=== PATIENT | male | born 1950 | race Caucasian/White ===

== ENCOUNTER 2019-12-11 14:52 | Emergency (ER) | payer MEDICARE ==
[~2019-12-11] VITALS: Ht 190.5 cm; Wt 90.3 kg
[2019-12-11 15:38] LABS: BASO % 0 % (0-3); EOS % 0 % (0-3); HEMATOCRIT 48.7 % (39.0-53.0); HEMOGLOBIN 16.5 g/dL (13.0-17.5); LYMPH # 0.4 x10^3/uL (1.0-4.8); LYMPH % 8 % (24-48); MEAN CORPUSCULAR HEMOGLOBIN 30 pg (25-35); MEAN CORPUSCULAR HGB CONC 34 g/dL (31-37); MEAN CORPUSCULAR VOLUME 90 fL (79-100); MONO # 0.3 x10^3/uL (0.0-1.1); MONO % 7 % (0-9); NEUT # 4.2 x10^3uL (1.8-7.7); NEUT % 85 % (31-73); PLATELET COUNT 186 x10^3/uL (140-400); RED BLOOD COUNT 5.42 x10^6/uL (4.30-5.70); RED CELL DISTRIBUTION WIDTH 14.1 % (11.5-14.5)
[2019-12-11 15:52] LABS: CALCIUM 8.2 mg/dL (8.5-10.1); CREATININE 1.1 mg/dL (0.7-1.3); GFR 66.8; POTASSIUM 3.4 mmol/L (3.5-5.1)
[2019-12-11 15:58] LABS: ALBUMIN/GLOBULIN RATIO 0.7 (1.0-1.7); TOTAL BILIRUBIN 1.5 mg/dL (0.2-1.0); TOTAL PROTEIN 7.1 g/dL (6.4-8.2)
--- NOTE | 2019-12-11 16:01 | RAD ---
Examination: 2 views of the left humerus, left shoulder, frontal view of the chest History history of fall, Findings/ impression: There is posterior displaced comminuted fracture of the mid diaphysis of the left humerus. Mild joint space loss identified in the glenohumeral joint likely degenerative changes. Mild cardiomegaly. Mild prominent bilateral interstitial lung markings likely chronic interstitial changes of interstitial infiltrates. Electronically signed by: Sunday Pacheco MD (12/11/2019 3:58 PM) [id number]
--- NOTE | 2019-12-11 16:19 | EKG ---
[facility] ED [facility] [address] [place] [id number] Test Date: 2019-12-11 Test Time: 15:11:57 Pat Name: IWONA ARMSTRONG Department: Room: Gender: M Associate Professor Of Medicine: : 1950 Requested By: DAYAMI JAQUEZ Order Number: [id number] Reading MD: Shaw Brown Measurements Intervals [place] Rate: 110 P: 36 PA: 162 QRS: -18 QRSD: 84 T: 39 QT: 330 QTc: 452 Interpretive Statements SINUS TACHYCARDIA VENTRICULAR PREMATURE COMPLEX(ES) LEFTWARD AXIS LOW LIMB LEAD VOLTAGE ABNORMAL ECG RI6.02 No previous ECG available for comparison Electronically Signed On 12-14-2019 10:56:18 [employer] by Shaw Brown
[2019-12-11] MEDS ORDERED: DEXAMETHASONE SOD PHOS 10 MG/ML VIAL. IV ONE (16:30)
[2019-12-11] MEDS ORDERED: AZITHROMYCIN 500 MG in IV NORMAL SALINE 250ML 250 ML IV ONE (16:30)
[2019-12-11] MEDS ORDERED: IV NORMAL SALINE 250ML 250 ML ONE (16:51)
[2019-12-11] MEDS ORDERED: IV NORMAL SALINE 100ML 100 ML ONE (16:51)
[2019-12-11] MEDS ORDERED: AZITHROMYCIN 500 MG VIAL. IV ONE (16:51)
[2019-12-11] MEDS ORDERED: IV NORMAL SALINE 1,000ML 1,000 ML IV ONE (19:00)
--- NOTE | 2019-12-11 19:06 | PHYS DOC ---
Past History Past Medical History: Diabetes, High Cholesterol, Hypertension Past Surgical History: No Surgical History Alcohol Use: None Drug Use: None Adult General Chief Complaint Chief Complaint: MULTIPLE COMPLAINTS HPI HPI Patient is a 69-year-old male who presents status post fall via EMS. Onset was just prior to arrival. Patient reports suffering and ambulatory fall down x5 steps landing on his left upper extremity. Patient did not hit his head, did not lose consciousness, but noticed immediate pain and bony abnormality to his left upper extremity. He was able to ambulate and call EMS who came on the scene and subsequently transferred patient to our facility for evaluation. On arrival to the scene, patient was found to be hypoxic saturating in the 70s on arrival and tachycardic in the low 100s. Patient is not on oxygen at home. He was immediately placed on a nonrebreather at 15 L supplemental oxygen and transferred to our facility for evaluation. On arrival, patient reports feeling "like I have the flu" for past 1 week. Admits feeling hot without any recorded fevers, has had chills, rhinorrhea, body aches, mild nausea, and a nonproductive cough. Patient denies any known COVID-19 contact but admits he has been traveling out into the community to get groceries etc. He lives home alone with his dog, no hemoptysis, no estrogen use, no long distance travel, no history of DVT/PE, no recent antibiotic use. He is a type II diabetic, admits being on o ral therapy only, also takes medications for hypertension, a statin, and 81 mg aspirin. Review of Systems Review of Systems Fourteen body systems of review of systems have been reviewed. See HPI for pertinent positives and negative responses, other rivera all other systems are negative, non-pertinent or non-contributory Current Medications Current Medications Current Medications Medications (Trade) Dose Ordered Sig/Naye Start Time Stop Time Status Last Admin Dose Admin Azithromycin (Zithromax) 500 mg STK-MED ONCE 12/11/19 16:51 12/11/19 16:51 DC Azithromycin 500 mg/Sodium Chloride 250 ml @ 250 mls/hr 1X ONCE 12/11/19 16:30 12/11/19 17:29 DC 12/11/19 17:05 250 MLS/HR Ceftriaxone Sodium 2 gm/ Sodium Chloride 100 ml @ 200 mls/hr 1X ONCE 12/11/19 16:30 12/11/19 16:59 DC 12/11/19 17:05 200 MLS/HR Ceftriaxone Sodium (Rocephin) 2 gm STK-MED ONCE 12/11/19 16:51 12/11/19 16:51 DC Dexamethasone Sodium Phosphate (Decadron) 6 mg 1X ONCE 12/11/19 16:30 12/11/19 16:35 DC 12/11/19 17:04 6 MG Sodium Chloride 1,000 ml @ 150 mls/hr 1X ONCE 12/11/19 19:00 12/12/19 01:39 UNV Allergies Allergies Allergies Coded Allergies Type Severity Reaction Last Updated Verified No Known Drug Allergies 12/11/19 No Physical Exam Physical Exam Constitutional: Pt is oriented to person, place, and time. Pt appears well- developed and well-nourished. Sitting upright with nonrebreather in place HENT: Head: Normocephalic and atraumatic. Mouth/Throat: Oropharynx is clear and dry, poor dentition No hematomas or lacerations or abrasions to face or scalp OP clear, no blood, no malocclusion, dentition intact Nares clear, no nasal septal hematoma External ears unremarkable, no chen sign Midface stable Eyes: Conjunctivae and EOM are normal. Pupils are equal, round, and reactive to light. Neck: C-spine midline nontender, no step-offs Cardiovascular: Tachycardic rate, regular rhythm and normal heart sounds. Pulmonary/Chest: Effort increased, breath sounds abnormal with bilateral rhonchi present diffusely. In moderate respiratory distress, accessory muscle usage noted in neck and upper abdomen Abdominal: Soft. Bowel sounds are normal. Pt exhibits no distension. There is no tenderness. Musculoskeletal: Obvious bony abnormality to left upper extremity, palpable and visual defect to left humerus area. Chest wall stable Pelvis stable and non-tender No vertebral TTP and spine without stepoffs Neurological: Pt is alert and oriented to person, place, and time. Moving all extremities willfully, able to wiggle all fingers and toes. Median ulnar and radial nerves intact to left upper extremity. Cap refill less than 3 seconds. Pulses equal and bilateral 2+ in upper extremities Alert and oriented x 3 Sensation grossly intact Skin: Skin is warm and dry. No abrasions, no lacerations Psychiatric: Behavior is appropriate for situation Nursing note and vitals reviewed. Current Patient Data Vital Signs Vital Signs Date Time Temp Pulse Resp B/P (MAP) Pulse Ox O2 Delivery O2 Flow Rate FiO2 12/11/19 14:52 99.9 100 34 135/76 (95) 44 Room Air Lab Results Laboratory Tests Test 12/11/19 15:22 White Blood Count 5.0 x10^3/uL (4.0-11.0) Red Blood Count 5.42 x10^6/uL (4.30-5.70) Hemoglobin 16.5 g/dL (13.0-17.5) Hematocrit 48.7 % (39.0-53.0) Mean Corpuscular Volume 90 fL (79-100) Mean Corpuscular Hemoglobin 30 pg (25-35) Mean Corpuscular Hemoglobin Concent 34 g/dL (31-37) Red Cell Distribution Width 14.1 % (11.5-14.5) Platelet Count 186 x10^3/uL (140-400) Neutrophils (%) (Auto) 85 % (31-73) Lymphocytes (%) (Auto) 8 % (24-48) Monocytes (%) (Auto) 7 % (0-9) Eosinophils (%) (Auto) 0 % (0-3) Basophils (%) (Auto) 0 % (0-3) Neutrophils # (Auto) 4.2 x10^3uL (1.8-7.7) Lymphocytes # (Auto) 0.4 x10^3/uL (1.0-4.8) Monocytes # (Auto) 0.3 x10^3/uL (0.0-1.1) Eosinophils # (Auto) 0.0 x10^3/uL (0.0-0.7) Basophils # (Auto) 0.0 x10^3/uL (0.0-0.2) Sodium Level 128 mmol/L (136-145) Potassium Level 3.4 mmol/L (3.5-5.1) Chloride Level 90 mmol/L (98-107) Carbon Dioxide Level 23 mmol/L (21-32) Anion Gap 15 (6-14) Blood Urea Nitrogen 14 mg/dL (8-26) Creatinine 1.1 mg/dL (0.7-1.3) Estimated GFR (Cockcroft-Gault) 66.8 BUN/Creatinine Ratio 13 (6-20) Glucose Level 260 mg/dL (70-99) Lactic Acid Level 5.4 mmol/L (0.4-2.0) Calcium Level 8.2 mg/dL (8.5-10.1) Total Bilirubin 1.5 mg/dL (0.2-1.0) Aspartate Amino Transf (AST/SGOT) 145 U/L (15-37) Alanine Aminotransferase (ALT/SGPT) 91 U/L (16-63) Alkaline Phosphatase 95 U/L (46-116) Troponin I Quantitative 0.022 ng/mL (0-0.055) Total Protein 7.1 g/dL (6.4-8.2) Albumin 3.0 g/dL (3.4-5.0) Albumin/Globulin Ratio 0.7 (1.0-1.7) EKG EKG EKG ordered and interpreted by myself at 1515 hrs. as sinus tachycardia at 110 bpm, unremarkable intervals, left axis deviation, no ischemic findings, no STEMI Radiology/Procedures Radiology/Procedures PROCEDURE: HUMERUS LEFT Examination: 2 views of the left humerus, left shoulder, frontal view of the chest History history of fall, Findings/ impression: There is posterior displaced comminuted fracture of the mid diaphysis of the left humerus. Mild joint space loss identified in the glenohumeral joint likely degenerative changes. Mild cardiomegaly. Mild prominent bilateral interstitial lung markings likely chronic interstitial changes of interstitial infiltrates. Electronically signed by: Sunday Pacheco MD (12/11/2019 3:58 PM) [id number] Heart Score HEART Score for Chest Pain: HEART Score for Chest Pain Response (Comments) Value History Moderately Suspicious 1 ECG Nonspecific Repolarizatio 1 Age > 65 2 Risk Factors >3 Risk Factors or Hx CAD 2 Troponin < Normal Limit 0 Total 6 Risk Factors: Risk Factors: DM, Current or recent (<one month) smoker, HTN, HLP, family history of CAD, obesity. Risk Scores: Risk Factors: DM, Current or recent (<one month) smoker, HTN, HLP, family history of CAD, obesity. Course & Med Decision Making Course & Med Decision Making Airway patent, patient in moderate respiratory distress, vitals remarkable for hypoxia that is markedly improved with saturations greater than 90% on 15 L nonrebreather and sinus tachycardia Comprehensive history and physical exam obtained, subsequent diagnostic work-up pursued. Pertinent Labs and Imaging studies reviewed and discussed at length with patient. (See chart for details) Discussed most likely diagnoses of left humeral fracture. Orthopedics at [facility] called in case reviewed. Per their recommendation, patient was splinted in a coaptation splint. Remains neurovascularly intact with appropriate motor and sensory function Also discussed respiratory failure that is likely due to pneumonia versus COVID- 19 infection of his lungs. Patient treated as such with 1 g Rocephin, 500 mg azithromycin and given 6 mg dexamethasone. Covid test taken and pending at this time I discussed need for transfer with [facility] hospitalist, Dr. Diana, who is agreeable for transfer for continued medical management under his care Updated patient on proposed plan of care, he was amenable to transfer. At this time, I feel patient is stabilized enough for safe transfer to [facility] for higher acuity of care, orthopedic consultation for his closed left humeral fracture, and continued mgmt of his acute respiratory failure All questions and concerns patient had were addressed prior to ER transport in stable condition via EMS Dragon Disclaimer Dragbrianda Disclaimer This electronic medical record was generated, in whole or in part, using a voice recognition dictation system. Departure Departure: Impression: Primary Impression: Closed left humeral fracture Additional Impressions: Acute respiratory failure with hypoxia Pneumonia Person under investigation for COVID-19 Electrolyte abnormality Type 2 diabetes mellitus Disposition: 02 DC/TRF OTHER SHORT TERM HOS ([facility]) Condition: STABLE Referrals: PCP,UNKNOWN (PCP) Problem Qualifiers DAYAMI JAQUEZ DO Dec 11, 2019 19:06
[2019-12-11 19:32] VITALS: BP 106/46
== END 2019-12-11 20:34 | disposition short-term general hospital (02) ==
LOC: ER 14:52
DX: S42.302A Unspecified fracture of shaft of humerus, left arm, initial encounter for closed fracture (principal); J96.01 Acute respiratory failure with hypoxia; J18.9 Pneumonia, unspecified organism; E87.8 Other disorders of electrolyte and fluid balance, not elsewhere classified; E11.9 Type 2 diabetes mellitus without complications; E78.00 Pure hypercholesterolemia, unspecified; I10 Essential (primary) hypertension; Z20.828 Contact with and (suspected) exposure to other viral communicable diseases; W10.8XXA Fall (on) (from) other stairs and steps, initial encounter; Y93.89 Activity, other specified; Y92.89 Other specified places as the place of occurrence of the external cause; Y99.8 Other external cause status
CPT/HCPCS: 29125; 36415; 71045; 73030; 73060; 80053; 83605; 84484; 85025; 87040; 93005; 96361; 96365; 96368; 96375; 99285; J0456; J0696; J1100; J7030; J7050